=== PATIENT | female | born 1965 | race Caucasian/White ===

== ENCOUNTER 2016-09-18 16:25 | Emergency (ER) | payer MEDICARE, OTHER ==
[2016-09-18 17:08] LABS: BASOPHIL 0.3 % (0-2); BILIRUBIN NEGATIVE (NEGATIVE); BLOOD TRACE-LYSED Ery/uL (NEGATIVE); CLARITY CLEAR (CLEAR); COLOR YELLOW (YELLOW); EOSINOPHIL 0.4 % (0-5); GLUCOSE (U) NORMAL (NORMAL); HCT 34.1 % (37.0-47.0); HGB 11.3 g/dl (12.5-16.0); KETONE (U) NEGATIVE (NEGATIVE); LEUKOCYTES TRACE Leu/uL (NEGATIVE); LYMPHOCYTE 17.8 % (15-48); MCH 28.7 pg (25.0-31.0); MCHC 33.1 g/dL (32.0-36.0); MCV 86.5 fL (78.0-100.0); MONOCYTE 7.6 % (0-12); MPV 8.9 fL (6.0-9.5); NEUTROPHIL 73.9 % (41-80); NITRITE NEGATIVE (NEGATIVE); PLT 464 K/uL (150-400); PROTEIN TRACE (LOW) mg/dL (NEGATIVE); RBC 3.94 M/uL (4.20-5.40); RDW 14.3 % (11.5-14.0); SPECIFIC GRAVITY 1.015 (1.001-1.030)
[2016-09-18 17:14] LABS: BACTERIA TRACE
[2016-09-18 17:26] LABS: ALBUMIN 3.5 g/dL (3.5-5.0); BILIRUBIN - TOTAL 0.6 mg/dL (0.1-1.0); CREATININE 1.8 mg/dL (0.5-1.0); GLOBULIN (CALCULATION) 4.3 g/dL (2.2-4.2); POTASSIUM 3.9 mmol/L (3.5-5.1); TOTAL PROTEIN 7.8 g/dL (6.4-8.3)
[2016-09-18 18:06] LABS: LACTIC ACID 1.1 mmol/L (0.5-2.2)
== END 2016-09-19 04:24 | disposition other institution (70) ==
LOC: FER 16:25
PROVIDERS: Emergency Medicine
DX: K57.20 Diverticulitis of large intestine with perforation and abscess without bleeding (principal); E86.9 Volume depletion, unspecified; I10 Essential (primary) hypertension; J44.9 Chronic obstructive pulmonary disease, unspecified; F41.9 Anxiety disorder, unspecified; F32.9 Major depressive disorder, single episode, unspecified; F17.210 Nicotine dependence, cigarettes, uncomplicated; Z79.51 Long term (current) use of inhaled steroids; Z79.899 Other long term (current) drug therapy; Z98.890 Other specified postprocedural states
CPT/HCPCS: 36415; 80053; 81001; 82150; 83605; 83690; 85025; 87040; J1170; J2405; J2543; J3010